=== PATIENT | female | born 1995 | race Caucasian/White ===

== ENCOUNTER 2016-08-13 09:44 | Emergency (ER) | payer OTHER ==
[2016-08-13 09:52] VITALS: BP 143/75
[2016-08-13] MEDS ORDERED: KETOROLAC TROMETHAMINE 60 MG/2 ML VIAL IM ONE (10:01)
[2016-08-13] MEDS ORDERED: DIAZEPAM 5 MG/ML DISP.SYRIN IM ONE (10:01)
--- NOTE | 2016-08-13 10:28 | ED Physician Documentation ---
Low Back Pain - HISTORIAN Historian: patient - HPI Stated Complaint: Low Back Pain Chief Complaint: Low Back Pain/ Injury Onset: hours Duration: continues in ED Recent Injury: No Context: turning Where: home Severity: moderate Further Comments: yes (21 year old female patient presents with low back pain, states she was playing video games and turned to get off the bed, reports "severe" back pain since that time. Denies numbness, loss of bowel or bladder. 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.) - ROS CONST: no problems CVS/RESP: none EYES/ENT: none MS/SKIN/LYMPH: none Neuro/Psych: none GI/: denies: abdominal pain, black stools - PAST HX Past History: denies: back injury, back pain Other History: other (anxiety) Surgeries/Procedures: other (ocular) Allergies/Adverse Reactions: Allergies Allergy/AdvReac Type Severity Reaction Status Date / Time iodine Allergy Severe Throat Verified 08/13/16 09:52 Swelling midazolam HCl [From Versed] Allergy Unknown Verified 08/13/16 09:52 Home Medications: Ambulatory Orders Medication Instructions Recorded Baclofen 10 mg PO TID PRN #30 tablet 08/13/16 Escitalopram Oxalate [Lexapro] 20 mg PO DAILY 08/13/16 Ketorolac Tromethamine [Toradol] 10 mg PO TID #15 tablet 08/13/16 Trazodone HCl [Trazodone HCl] 50 mg PO DAILY 08/13/16 Venlafaxine HCl [Effexor] 37.5 mg PO QD 08/13/16 - SOCIAL HX Smoking History: cigarettes - FAMILY HX Family History: denies: none - VITAL SIGNS Vital Signs: Vital Signs Temp Pulse Resp BP Pulse Ox 97.8 F 78 18 143/75 99 08/13/16 09:45 08/13/16 10:40 08/13/16 10:40 08/13/16 10:40 08/13/16 10:40 - REVIEWED ASSESSMENTS Nursing Assessment Reviewed: Yes Vitals Reviewed: Yes Progress - Progress Progress: Reviewed discharge instructions. Instructed to see PCP after 5 days of NSAIDs if pain continued for radiology tests. ED Results Lab/Radiology - Orders Orders: ED Orders Category Date Time Status Diazepam [Valium] Med 08/13/16 10:01 Discontinued 5 mg IM NOW ONE Ketorolac Tromethamine [Toradol] Med 08/13/16 10:01 Discontinued 60 mg IM NOW ONE Low Back Pain/Injury - Physical Exam General Appearance: mild distress EENT: eye inspection normal, ARMIDA Resp/CVS: chest non-tender, breath sounds nml, heart sounds nml, no resp. distress, lungs clear, reg. rate & rhythm Abdomen: non-tender, no organomegaly, no pulsatile mass Back: painless ROM, other (tenderness to palpation in the L-spine paraspinous muscles. ) Straight Leg Raising: No: Negative Left (patient refuses to lie down for straight leg tests due to pain) Neuro/Psych: oriented x3, motor nml, sensation nml, bilat. doriflexion nml, reflexes nml, mood/affect nml Skin: normal color, warm/dry, NR, INT, PAL, DR Extremities: non-tender, normal range of motion, no evidence of injury, no edema , J, SUPERMARKET MANAGER Discharge Clincal Impression: Low back strain Qualifiers: Encounter type: initial encounter Qualified Code(s): S39.012A - Strain of muscle, fascia and tendon of lower back, initial encounter Prescriptions: Baclofen 10 mg PO TID PRN #30 tablet PRN Reason: Spasms Ketorolac Tromethamine [Toradol] 10 mg PO TID #15 tablet Referrals: Deborah Hou PA [PHYSICIAN SALES PROJECT COORDINATOR] - 2 Days Additional Instructions: Ice Rest Elevation If you are unable to bear weight and continuing to have signficant pain on day 3 -4; see your PCP for re-evaluation and additional xrays. You may use Tylenol every 4hour as needed for pain. Limit your dose to less than 4 G per day. Alternate with Ibuprofen 600-800mg three times a day with food as needed. Do not take for more than 5 days in a row. Do not take ibuprofen, aleve, naproxen or any other NSAID while you are on toradol. You may want to try massage, biofreeze, blayne inman or aspercream or see a chiropractor to relieve your pain Home Medications: Ambulatory Orders Baclofen 10 mg PO TID PRN #30 tablet 08/13/16 Escitalopram Oxalate [Lexapro] 20 mg PO DAILY 08/13/16 Ketorolac Tromethamine [Toradol] 10 mg PO TID #15 tablet 08/13/16 Trazodone HCl [Trazodone HCl] 50 mg PO DAILY 08/13/16 Venlafaxine HCl [Effexor] 37.5 mg PO QD 08/13/16 Condition: Stable Disposition: 01 HOME, SELF-CARE Decision to Admit: NO Decision Time: 10:28
== END 2016-08-13 10:40 | disposition home or self-care (01) ==
LOC: ED 09:44 → SUPCPDRO 09:44 → ED 10:40
DX: S39.012A Strain of muscle, fascia and tendon of lower back, initial encounter (principal); X58.XXXA Exposure to other specified factors, initial encounter; Y93.9 Activity, unspecified; Y99.9 Unspecified external cause status
CPT/HCPCS: J1885; J3360; 96372; 99283

== ENCOUNTER 2017-02-24 22:29 | Emergency (ER) | payer OTHER ==
[2017-02-24 23:29] LABS: APPEARANCE,URINE CLEAR (CLEAR); COLOR,URINE YELLOW (YELLOW); OCCULT BLOOD,URINE NEGATIVE (NEGATIVE)
[2017-02-24 23:38] LABS: BASOPHILS % 0.7 (0.0-1.5); EOSINOPHILS % 3.6 % (0.0-6.8); MEAN CORPUSCULAR HEMOGLOBIN 27.3 pg (28.0-34.0); MEAN CORPUSCULAR VOLUME 83.5 fl (80.0-100.0); MONOCYTES % 4.8 % (0.0-11.0); NEUTROPHILS # 6.6 # k/uL (1.4-7.7)
[2017-02-24 23:47] LABS: eGFR (African) > 60; eGFR (Non-African) > 60
[2017-02-25] MEDS ORDERED: ONDANSETRON HCL/PF 4 MG/ 2ML VIAL ONE (00:10)
[2017-02-25] MEDS: ONDANSETRON HCL/PF 4 MG/ 2ML VIAL IVP ONE (00:15)
[2017-02-25 00:31] VITALS: BP 113/78
--- NOTE | 2017-02-25 00:34 | ED Physician Documentation ---
Abdominal Pain - HISTORIAN Historian: patient - HPI Stated Complaint: n/v Chief Complaint: Abdominal Pain Additonal Information: nausea emesis past two nights lasted until 0400 this l;ast ;noct. vomited again tonight - both nocts shortly after took meds. only new med is bcp for ovarian cysts-unsure re Onset: days ago (2) Timing: better Context: out of country travel Severity: moderate Quality: other (nausea emesis min abd pain) Associated Symptoms: nausea, vomiting Further Comments: yes (on sulpha for callulitis leg and arm) - ROS CONST: no problems GI/: none CVS/RESP: none EYES/ENT: none (blind lt eye) MS/SKIN/LYMPH: none NEURO/PSYCH: none - SOCIAL HX Smoking History: less than 1 pack/day Alcohol Use: none Drug Use: none - FAMILY HX Family History: none - PAST HX Past History: other (ovarian cysts depression) Surgeries/Procedures: other (seven on lt eye) Allergies/Adverse Reactions: Allergies Allergy/AdvReac Type Severity Reaction Status Date / Time iodine Allergy Severe Throat Verified 02/24/17 22:52 Swelling midazolam HCl [From Versed] Allergy Unknown Verified 02/24/17 22:52 - VITAL SIGNS Vital Signs: Vital Signs Temp Pulse Resp BP Pulse Ox 97.5 F L 80 20 119/52 99 02/24/17 22:47 02/24/17 22:47 02/24/17 22:47 02/24/17 22:47 02/24/17 22:47 - REVIEWED ASSESSMENTS Nursing Assessment Reviewed: Yes Vitals Reviewed: Yes ED Results Lab/Radiology - Orders Orders: ED Orders Category Date Time Status AMYLASE Routine Lab 02/24/17 Ordered AMYLASE Routine Lab 02/24/17 23:28 Completed CBC AUTO DIFF Routine Lab 02/24/17 23:28 Completed CBC/PLATELET/DIFF Routine Lab 02/24/17 Ordered CMP Routine Lab 02/24/17 Ordered CMP Routine Lab 02/24/17 23:28 Completed SERUM HCG Routine Lab 02/24/17 Ordered SERUM HCG Routine Lab 02/24/17 23:28 Completed UA W/MICRO IF INDICATED Routine Lab 02/24/17 23:28 Completed URINALYSIS Routine Lab 02/24/17 Ordered Abdominal Pain Physical Exam - Physical Exam General Appearance: mild distress RESPIRATORY: no resp distress, chest non-tender, breath sounds normal CVS: reg rate & rhythm, heart sounds normal ABDOMEN: soft, tenderness (slight) SKIN: warm/dry, normal color. No: cyanosis, diaphoresis, jaundice, mottled EXTREMITIES: non-tender, normal range of motion NEURO: oriented X3 Vital Signs: Vital Signs Temp Pulse Resp BP Pulse Ox 97.5 F L 80 20 119/52 99 02/24/17 22:47 02/24/17 22:47 02/24/17 22:47 02/24/17 22:47 02/24/17 22:47 Discharge Clincal Impression: nausea udo-possibly meds interaction Referrals: Loretta Barnett MD [Primary Care Provider] - 2 Days Condition: Good Disposition: 01 HOME, SELF-CARE Decision to Admit: NO Decision Time: 23:58
== END 2017-02-25 00:30 | disposition home or self-care (01) ==
LOC: ED 22:29
DX: R11.0 Nausea (principal)
CPT/HCPCS: 80053; 81002; 82150; 84703; 85025; J2405; 96372; 99283; S1016

== ENCOUNTER 2017-04-04 22:12 | Emergency (ER) | payer OTHER ==
[2017-04-04] MEDS ORDERED: LORATADINE 10 MG TABLET PO ONE (22:25)
[2017-04-04] MEDS ORDERED: methylPREDNISolone ACETATE 40 MG/ML VIAL IM ONE (22:25)
[2017-04-04] MEDS ORDERED: methylPREDNISolone ACETATE 80 MG/ML VIAL IM ONE (22:26)
--- NOTE | 2017-04-04 22:28 | ED Physician Documentation ---
Allergy Symptoms - HISTORIAN Historian: patient, friend - [facility] Chief Complaint: Allergic Reaction Additional Information: FACIAL SWELLING DUE TO UNKNOWN ALLERGIC REACTION ONSET APPROX 2200HRS ATE WENDYS CHEESE BERRIOS FRIES AND CHICKEN NUGGETS APPROX 2000HRS. HAS EATEN THIS BEFORE-NO OBVIOUS OTHER ALLERGEN.PT TOOK 75MG BENADRYL APPROX 1 HR AGO Duration: continues in ED Associated Symptoms: facial, other (SWELLING MILD PURITIC) Shortness of Breath: moderate Trouble Swallowing/ Speaking: none Identified Cause: no Context: Medication Exposure: other (NO NEW) Further Comments: yes (no resp distress or swallowing no tongue swelling) - ROS EYES/ENT: other (blind lt eye child camacho injury) CVS/RESP: none GI/: none CONST: none MS/SKIN/LYMPH: none NEURO/PSYCH: none - PAST HX Prior Allergic Reaction: other (iodine) Medical History: other (DEPRESSION LT EYE BLIND FEROM CHILDHOOD INJURY) Allergies/Adverse Reactions: Allergies Allergy/AdvReac Type Severity Reaction Status Date / Time iodine Allergy Severe Throat Verified 04/04/17 22:18 Swelling midazolam HCl [From Versed] Allergy Unknown Verified 04/04/17 22:18 Home Medications: Ambulatory Orders Medication Instructions Recorded Desogestrel-Ethinyl Estradiol 1 tab PO QDAY 04/04/17 [Enskyce 28 Tablet] diphenhydrAMINE HCL [Benadryl] 25 mg PO HS 04/04/17 - SOCIAL HX Smoking History: less than 1 pack/day Alcohol Use: none Drug Use: none - FAMILY HX Family History: No - VITAL SIGNS Vital Signs: Vital Signs Temp Pulse Resp BP Pulse Ox 113/78 02/25/17 00:30 - REVIEWED ASSESSMENTS Nursing Assessment Reviewed: Yes Vitals Reviewed: Yes ED Results Lab/Radiology - Orders Orders: ED Orders Category Date Time Status Famotidine [Pepcid] Med 04/04/17 22:24 Once 20 mg PO NOW ONE Loratadine [Claritin] Med 04/04/17 22:25 Once 10 mg PO NOW ONE methylPREDNISolone ACETATE [Depo-Medrol] Med 04/04/17 22:23 Ordered 80 mg IM NOW PRN Allergy Symptons Exam - EXAM General Appearance: mild distress HEENT: ENT nml inspection Skin: no rash (LKIPS CLARICE UPPER AND OTHER FACIAL SWELLING) Extremities: non-tender Neck: nml inspection Respiratory: no resp. distress, breath sounds nml CVS: reg rate & rhythm, heart sounds normal Abdomen: non-tender Neuro: oriented X3, CN's nml as tested, motor nml, sensation nml, mood/affect nml, cognition normal Discharge Clincal Impression: FACIAL SWELLING-ALL REACTION UDO Referrals: Loretta Barnett MD [Primary Care Provider] - 2 Days Comments: PT REQ STEROID. WILL ALSO GET RANITIDINE AND CLARITIN-PERHAPS HOLD BENADRYL Condition: Good Disposition: 01 HOME, SELF-CARE Decision to Admit: NO Decision Time: 22:34
[2017-04-04] MEDS: methylPREDNISolone ACETATE 80 MG/ML VIAL IM PRN (22:30)
[2017-04-04] MEDS: FAMOTIDINE 20 MG TABLET PO ONE (22:40)
[2017-04-04] MEDS: LORATADINE 10 MG TABLET PO ONE (22:40)
[2017-04-04] MEDS: methylPREDNISolone SOD SUCC 40 MG/ML VIAL IM ONE (22:49)
[2017-04-04 22:57] VITALS: BP 138/76
== END 2017-04-04 22:55 | disposition home or self-care (01) ==
LOC: ED 22:12
DX: T78.3XXA Angioneurotic edema, initial encounter (principal); X58.XXXA Exposure to other specified factors, initial encounter; Y93.9 Activity, unspecified; Y99.9 Unspecified external cause status
CPT/HCPCS: J1030; J1040; J2920; 96372; 99283

== ENCOUNTER 2017-06-29 22:37 | Emergency (ER) | payer OTHER ==
--- NOTE | 2017-06-29 22:51 | ED Physician Documentation ---
General Adult - HISTORIAN Historian: patient, spouse - HPI Stated Complaint: lower abdominal pain nausea (last ) Chief Complaint: Flank Pain Onset: days ago (5) Timing: still present, pain intermittent Severity: mild Further Comments: yes (per pt she started with vomiting x 1 last and she has had headache and chills no fever. Denies any blood in her urine . Pain is left lower quadrant at then at times it moves to her side . Denies any urinary issues. Denies any vaginal symptoms) - ROS CONST: chills. denies: fever, recent illness CVS/RESP: denies: shortness of breath, cough GI/: vomiting (x 1 ), diarrhea (x 1 today ). denies: nausea MS/SKIN/LYMPH: none NEURO/PSYCH: headache - PAST HX Past History: none Other History: none Surgeries/Procedures: none Immunizations: referred to PCP Allergies/Adverse Reactions: Allergies Allergy/AdvReac Type Severity Reaction Status Date / Time iodine Allergy Severe Throat Verified 06/29/17 23:02 Swelling midazolam HCl [From Versed] Allergy Unknown Verified 06/29/17 23:02 - SOCIAL HX Smoking History: cigarettes - FAMILY HX Family History: No - VITAL SIGNS Vital Signs: Vital Signs Temp Pulse Resp BP Pulse Ox 138/76 04/04/17 22:55 - REVIEWED ASSESSMENTS Nursing Assessment Reviewed: Yes Vitals Reviewed: Yes Progress - Progress Progress: 2345: pt resting in bed on her phone with spouse at bedside. DG ED Results Lab/Radiology - Radiology Radiology Impressions: Computed tomography of the abdomen and pelvis without contrast History: 3 days of left lower abdominal pain Findings: Transverse abdomen and pelvis sections are obtained without contrast. The gallbladder is markedly contracted. A calcified liver granuloma is present. The kidneys, adrenals, spleen, lung bases, pancreas, great vessels, and mesenteric structures are unremarkable. Obesity is observed. Bowel loops exhibit normal caliber and wall thickness. Osseous structures are intact. The appendix is normal. Pelvic sections reveal unremarkable bowel loops, decompressed urinary bladder, and normal-sized uterus and ovaries. No acute pelvic abnormality is observed. Osseous structures are intact. Impression: Obesity and gallbladder contraction. Otherwise normal exam. Electronically signed on Jun 30, 2017 12:11:33 AM BLOCK SETTER GYPSUM by: Raza Gomez General Adult Physical Exam - PHYSICAL EXAM GENERAL APPEARANCE: no distress EENT: eye inspection normal RESPIRATORY: no resp distress, chest non-tender, breath sounds normal CVS: reg rate & rhythm, heart sounds normal, equal pulses, no murmur ABDOMEN: soft, normal bowel sounds, no distension, non-tender, guarding (lower abdomen) BACK: normal inspection SKIN: warm/dry, normal color EXTREMITIES: non-tender, normal range of motion NEURO: oriented X3, CN's nml as tested, motor nml, sensation nml, mood/affect nml Discharge Clincal Impression: Nausea & vomiting Qualifiers: Vomiting type: unspecified Vomiting Intractability: intractable Qualified Code( s): R11.2 - Nausea with vomiting, unspecified Abdominal pain Qualifiers: Abdominal location: left lower quadrant Qualified Code(s): R10.32 - Left lower quadrant pain Referrals: Loretta Barnett MD [Primary Care Provider] - 2 Days Comments: Push fluids rest Tylenol or Ibuprofen for pain Watch for blood in urine or continued symptoms or fever Return to ER for any concerning symptoms Follow up with PCP in 2-4 days Condition: Stable Disposition: 01 HOME, SELF-CARE Decision to Admit: NO Date of Decison to Admit: 06/30/17 Decision Time: 00:15
[2017-06-29 23:41] LABS: BASOPHILS % 0.4 (0.0-1.5); EOSINOPHILS % 2.5 % (0.0-6.8); MEAN CORPUSCULAR HEMOGLOBIN 28.6 pg (28.0-34.0); MEAN CORPUSCULAR VOLUME 86.5 fl (80.0-100.0); MONOCYTES % 6.9 % (0.0-11.0); NEUTROPHILS # 6.4 # k/uL (1.4-7.7)
[2017-06-29 23:51] LABS: eGFR (African) > 60; eGFR (Non-African) > 60
[2017-06-30 00:25] VITALS: BP 117/67
--- NOTE | 2017-06-30 06:09 | Diagnostic Imaging Report ---
ERNESTO HENRIQUEZ [facility] [address] [facility] [address] [place], [place]. [address] Report Submission Date: Jun 30, 2017 12:11:33 AM DIRECTOR CAREER SERVICES Patient Study Name: BERT ALMODOVAR Date: Jun 29, 2017 11:41:39 PM DIRECTOR CAREER SERVICES Modality Type: CT\SR Gender: F Description: CT ABD & PELVIS W/O CO : 95 Institution: [facility] Physician: ERNESTO HENRIQUEZ Computed tomography of the abdomen and pelvis without contrast History: 3 days of left lower abdominal pain Findings: Transverse abdomen and pelvis sections are obtained without contrast. The gallbladder is markedly contracted. A calcified liver granuloma is present. The kidneys, adrenals, spleen, lung bases, pancreas, great vessels, and mesenteric structures are unremarkable. Obesity is observed. Bowel loops exhibit normal caliber and wall thickness. Osseous structures are intact. The appendix is normal. Pelvic sections reveal unremarkable bowel loops, decompressed urinary bladder, and normal-sized uterus and ovaries. No acute pelvic abnormality is observed. Osseous structures are intact. Impression: Obesity and gallbladder contraction. Otherwise normal exam. Electronically signed on Jun 30, 2017 12:11:33 AM DIRECTOR CAREER SERVICES by: Raza MONTANEZ
[2017-06-30 06:15] LABS: APPEARANCE,URINE CLEAR (CLEAR); COLOR,URINE YELLOW (YELLOW); OCCULT BLOOD,URINE TRACE-INTACT (NEGATIVE); PH URINE 6.5 (5.0 - 8.0); URINE HCG NEGATIVE (NEGATIVE); UROBILINOGEN URINE 0.2 Eu (0.2-1.0)
== END 2017-06-30 00:19 | disposition home or self-care (01) ==
LOC: ED 22:37
DX: R10.32 Left lower quadrant pain (principal); R11.2 Nausea with vomiting, unspecified
CPT/HCPCS: 74176; 80053; 81002; 81025; 85025; 99283; S1016

== ENCOUNTER 2018-01-06 15:59 | Outpatient (CLI) | payer OTHER | END 2018-01-06 16:05 | LOC: LABRHC 15:59 | PROVIDERS: ATTEND Family Medicine | DX: R10.2 Pelvic and perineal pain (principal) | CPT/HCPCS: 87491; 87591 ==

== ENCOUNTER 2018-03-13 21:38 | Emergency (ER) | payer OTHER ==
[2018-03-13] MEDS ORDERED: methylPREDNISolone SOD SUCC 125 MG/2 ML VIAL IVP ONE (22:00)
[2018-03-13] MEDS ORDERED: IPRATROPIUM/ALBUTEROL SULFATE 3 ML AMPUL.NEB NEB ONE (22:00)
--- NOTE | 2018-03-13 22:32 | ED Physician Documentation ---
Upper Respiratory Symptoms - HISTORIAN Historian: patient - HPI Stated Complaint: "I HAVE BEEN HAVING TROUBLE BREATHING /FEVER SINCE LAST WEEK" Chief Complaint: Cough/ Upper Respiratory Additional Information: Patient presents to ED with a 7 day history of cough with clear sputum production and a one day history of fever 103.0. Patient is a smoker and has been unable to smoke due to cough. She states her chest hurts when she coughs. She also reports some blood streaked sputum on occasion. Onset: days ago (7) Duration: intermittent episodes Severity: moderate Associated Symptoms: fever, runny nose, bloody cough, productive cough. denies: sore throat Worsened by Deep Breath: Yes - ROS CONST/EYES: denies: weakness CVS/RESP: chest pain, shortness of breath LYMPH: denies: swollen glands GI/: denies: abdominal pain NEURO/PSYCH: denies: dizziness MS/SKIN: denies: joint pain - PAST HX Lung Disease: none PE Risk Factors: none Surgeries/Procedures: none Allergies/Adverse Reactions: Allergies Allergy/AdvReac Type Severity Reaction Status Date / Time iodine Allergy Severe Throat Verified 03/13/18 22:02 Swelling midazolam HCl [From Versed] Allergy Unknown Verified 03/13/18 22:02 Home Medications: Ambulatory Orders Medication Instructions Recorded Levofloxacin [Levaquin] 750 mg PO DAILY #5 tablet 03/13/18 Prednisone 10 mg PO DIRECTED #1 tab.ds.pk 03/13/18 - SOCIAL HX Smoking History: cigarettes, greater than 1 pack/day Alcohol Use: none Drug Use: marijuana - FAMILY HX Family History: none - VITAL SIGNS Vital Signs: Vital Signs Temp Pulse Resp BP Pulse Ox 96.9 F L 96 H 16 123/62 95 03/13/18 21:45 03/13/18 21:45 03/13/18 21:45 03/13/18 21:45 03/13/18 21:45 - REVIEWED ASSESSMENTS Nursing Assessment Reviewed: Yes Vitals Reviewed: Yes Progress - Progress Progress: 2258 Patient breathing easier after breathing treatment. ED Results Lab/Radiology - Lab Results Lab Results: Lab Results 03/13/18 22:26 Sodium 134 mmol/L L mmol/L (136-145) Potassium 3.6 mmol/L mmol/L (3.5-5.1) Chloride 114 mmol/L H mmol/L (98-107) Carbon Dioxide 23 mmol/L mmol/L (22-30) BUN 7 mg/dL mg/dL (7-17) Creatinine 0.60 mg/dL mg/dL (0.52-1.04) Estimated Creat Clear 291 Est GFR ( Amer) > 60 (60 - ) Est GFR (Non-Af Amer) > 60 (60 - ) Glucose 80 mg/dL mg/dL (74-106) Calcium 8.6 mg/dL mg/dL (8.4-10.2) PA and lateral chest Clinical history: Cough and weakness for 1 week. Findings: Examination of the chest in PA and lateral views with no prior films for comparison demonstrates the lungs to be clear. The cardiovascular and mediastinal silhouettes are within normal limits. The bony thorax is intact. Impression: 1. Negative chest. Electronically signed on Mar 13, 2018 11:09:25 PM CDT by: Bg Stratton - Orders Orders: ED Orders Category Date Time Status Place IV Lock 1T Care 03/13/18 21:58 Active CHEST 2VIEW [RAD] Stat Exams 03/13/18 Taken BMP [BMP] Stat Lab 03/13/18 22:26 Completed URINE HCG [URINE HCG] Stat Lab 03/13/18 Uncollected 0.9 % Sodium Chloride [Sodium Chloride] 100 ml Med 03/13/18 22:59 Discontinued IV .STK-MED Ipratropium/Albuterol Sulfate [Duoneb] Med 03/13/18 22:00 Discontinued 3 ml NEB NOW ONE cefTRIAXone SODIUM [Rocephin] Med 03/13/18 22:59 Discontinued 1 gm .ROUTE .STK-MED ONE cefTRIAXone SODIUM [Rocephin] 1 gm Med 03/13/18 22:36 Discontinued 0.9 % Sodium Chloride [Sodium Chloride] 100 ml IV NOW methylPREDNISolone SOD SUCC [Solu-MEDROL] Med 03/13/18 22:00 Discontinued 125 mg IVP NOW ONE Upper Respiratory Symptoms - EXAM General Appearance: no acute distress, alert EENT: eyes nml inspection Neck: supple Respiratory: other (scattered inspiratory/expiratory wheezes bilaterally). No: accessory muscle use Abdomen: non-tender, nml bowel sounds CVS: reg rate & rhythm, heart sounds normal Skin: color nml, no rash Extremities: non-tender, no edema Neuro/Psych: oriented x3, neuro intact Discharge Clincal Impression: Upper respiratory infection, acute Prescriptions: Levofloxacin [Levaquin] 750 mg PO DAILY #5 tablet Prednisone 10 mg PO DIRECTED #1 tab.ds.pk Referrals: Loretta Barnett MD [Primary Care Provider] - 2 Days Condition: Stable Disposition: 01 HOME, SELF-CARE Decision to Admit: NO Date of Decison to Admit: 03/13/18 Decision Time: 23:14
[2018-03-13] MEDS ORDERED: cefTRIAXone SODIUM 1 GM in 0.9 % SODIUM CHLORIDE 100 ML IV ONE (22:36)
[2018-03-13 22:45] LABS: eGFR (Non-African) > 60
[2018-03-13] MEDS ORDERED: cefTRIAXone SODIUM 1 GM VIAL ONE (22:59)
[2018-03-13] MEDS ORDERED: 0.9 % SODIUM CHLORIDE 100 ML IV ONE (22:59)
[2018-03-13] MEDS ORDERED: ACETAMINOPHEN 500 MG TABLET PO ONE (23:30)
--- NOTE | 2018-03-14 | Diagnostic Imaging Report ---
BERT WHITTINGTON [facility] [address] [facility] [address] [place] [address]. [id number] Report Submission Date: Mar 13, 2018 11:09:25 PM CDT Patient Study Name: BERT RIVAS Date: Mar 13, 2018 10:50:06 PM CDT Modality Type: DX Gender: F Description: CHEST : 95 Institution: [facility] Physician: BERT WHITTINGTON PA and lateral chest Clinical history: Cough and weakness for 1 week. Findings: Examination of the chest in PA and lateral views with no prior films for comparison demonstrates the lungs to be clear. The cardiovascular and mediastinal silhouettes are within normal limits. The bony thorax is intact. Impression: 1. Negative chest. Electronically signed on Mar 13, 2018 11:09:25 PM CDT by: Bg MONTANEZ
[2018-03-14 00:06] VITALS: BP 92/50
== END 2018-03-14 00:05 | disposition home or self-care (01) ==
LOC: ED 21:38
DX: J06.9 Acute upper respiratory infection, unspecified (principal)
CPT/HCPCS: 71046; 80048; 81025; J2930; 94640; 96374; S1016

== ENCOUNTER 2018-09-22 15:30 | Outpatient (CLI) | payer BC | END 2018-09-22 15:33 | LOC: LABRHC 15:30 | PROVIDERS: ATTEND Family Medicine | DX: J02.9 Acute pharyngitis, unspecified (principal) | CPT/HCPCS: 87070 ==

== ENCOUNTER 2018-11-24 21:11 | Emergency (ER) | payer BC ==
[2018-11-24] MEDS ORDERED: KETOROLAC TROMETHAMINE 60 MG/2 ML VIAL IM ONE (21:22)
--- NOTE | 2019-01-05 08:52 | Diagnostic Imaging Report ---
BRO العلي [facility] [address] [facility].[address] [address] Report Submission Date: Nov 24, 2018 10:01:08 PM CDT Patient Study Name: BERT RIVAS Date: Nov 24, 2018 9:32:47 PM CDT Modality Type: DX Gender: F Description: HAND 3 VIEWS OR MORE : 95 Institution: [facility] Physician: BRO العلي 3 views right hand Clinical history: Right hand pain Findings: There is a fracture base of the 5th metacarpal without displacement. No other fractures identified. Electronically signed on Nov 24, 2018 10:01:08 PM CDT by: Balwinder MONTANEZ
== END 2018-11-24 22:24 ==
LOC: ED 21:15
DX: S52.601A Unspecified fracture of lower end of right ulna, initial encounter for closed fracture (principal); S62.306A Unspecified fracture of fifth metacarpal bone, right hand, initial encounter for closed fracture; W22.8XXA Striking against or struck by other objects, initial encounter; Y92.9 Unspecified place or not applicable
CPT/HCPCS: 29125; 73130; 96372; 99283; J1885

== ENCOUNTER 2019-02-26 10:57 | Emergency (ER) | payer BC, OTHER ==
[2019-02-26 11:34] VITALS: BP 126/66
--- NOTE | 2019-02-26 11:48 | ED Physician Documentation ---
General Adult - HISTORIAN Historian: patient - HPI Stated Complaint: Sore throat Chief Complaint: General Adult Onset: hours Timing: still present Severity: moderate Further Comments: yes (Pt is a 23 yo female with a sore throat. Boyfriend also has sore throat. No fever, cough.) - ROS CONST: other EYES/ENT: sore throat GI/: none MS/SKIN/LYMPH: none - PAST HX Past History: other (anxiety/depression, chronic pain, L eye surgery) Allergies/Adverse Reactions: Allergies Allergy/AdvReac Type Severity Reaction Status Date / Time iodine Allergy Severe Throat Verified 02/26/19 11:28 Swelling midazolam HCl [From Versed] Allergy Unknown Verified 02/26/19 11:28 Home Medications: Ambulatory Orders Medication Instructions Recorded Amoxicillin/Potassium Clav 1 each PO Q12H #20 tablet 02/26/19 [Augmentin 875-125 Tablet] - SOCIAL HX Smoking History: cigarettes - FAMILY HX Family History: No - VITAL SIGNS Vital Signs: Vital Signs Temp Pulse Resp BP Pulse Ox 98.7 F 85 16 126/66 99 02/26/19 11:24 02/26/19 11:24 02/26/19 11:24 02/26/19 11:24 02/26/19 11:24 - REVIEWED ASSESSMENTS Nursing Assessment Reviewed: Yes Vitals Reviewed: Yes Progress - Progress Progress: Rx Augmentin (875/125). Take one tablet by mouth every 12 hours for 10 days. General Adult Physical Exam - PHYSICAL EXAM GENERAL APPEARANCE: mild distress EENT: TM's nml, pharyngeal erythema NECK: normal inspection, supple RESPIRATORY: no resp distress, chest non-tender, breath sounds normal CVS: reg rate & rhythm, heart sounds normal BACK: normal inspection, no CVA tenderness SKIN: warm/dry, normal color EXTREMITIES: non-tender, normal range of motion, no evidence of injury NEURO: oriented X3, motor nml, sensation nml Discharge Clincal Impression: Pharyngitis Qualifiers: Pharyngitis/tonsillitis etiology: unspecified etiology Qualified Code(s): J02.9 - Acute pharyngitis, unspecified Prescriptions: Amoxicillin/Potassium Clav [Augmentin 875-125 Tablet] 1 each PO Q12H #20 tablet Referrals: Primary Doctor,No [Primary Care Provider] - Condition: Good Disposition: 01 HOME, SELF-CARE Decision to Admit: NO Decision Time: 11:50
== END 2019-02-26 12:03 | disposition home or self-care (01) ==
LOC: ED 10:57
DX: J02.9 Acute pharyngitis, unspecified (principal)
CPT/HCPCS: 87070; 87880; 99283; 99284

== ENCOUNTER 2019-06-04 19:11 | Emergency (ER) | payer BC ==
--- NOTE | 2019-06-04 19:27 | ED Physician Documentation ---
Abdominal Pain - HISTORIAN Historian: patient - HPI Stated Complaint: LUQ abdominal pain, diarrhea Chief Complaint: Abdominal Pain Additonal Information: Patient presents to ED with a 1 hour history of LUQ abdominal pain. She reports diarrhea this morning. Patient is 17 weeks gestation. She denies vaginal discharge or spotting. Onset: hours (1) Duration: waxing, waning Timing: still present Context: denies: out of country travel Severity: mild Quality: aching, dull Associated Symptoms: diarrhea Exacerbated by: deep breaths Relieved by: supine - ROS CONST: no problems GI/: none CVS/RESP: denies: shortness of breath EYES/ENT: none MS/SKIN/LYMPH: none NEURO/PSYCH: none - SOCIAL HX Smoking History: cigarettes Alcohol Use: none Drug Use: none - FAMILY HX Family History: none - PAST HX Past History: none Ischemic Bowel Risk Factors: none Other History: none Surgeries/Procedures: none Allergies/Adverse Reactions: Allergies Allergy/AdvReac Type Severity Reaction Status Date / Time iodine Allergy Severe Throat Verified 06/04/19 19:43 Swelling midazolam HCl [From Versed] Allergy Unknown Verified 06/04/19 19:43 - VITAL SIGNS Vital Signs: Vital Signs Temp Pulse Resp BP Pulse Ox 97.6 F 76 12 119/43 98 06/04/19 19:15 06/04/19 19:15 06/04/19 19:15 06/04/19 19:15 06/04/19 19:15 - REVIEWED ASSESSMENTS Nursing Assessment Reviewed: Yes Vitals Reviewed: Yes Progress - Progress Progress: 1929 Portable doppler unit unable to get heart tones or femoral pulse of mother. Apparently it is broken. 1944 [facility] Will sign out AMA ED Results Lab/Radiology - Lab Results Lab Results: ua - negative for infection. Glucose neg, bilirubin neg, ketone neg, sp gravity 1.030, blood neg, protein neg, nitrite neg, leukocyte neg. - Orders Orders: ED Orders Category Date Time Status Heart Tones 1T Care 06/04/19 19:[address] IV Lock 1T Care 06/04/19 19:45 Ordered CBC/PLATELET/DIFF Routine Lab 06/04/19 Ordered CMP [CMP] Routine Lab 06/04/19 Ordered UA W/MICRO IF INDICATED Routine Lab 06/04/19 19:17 Ordered Acetaminophen [Tylenol] Med 06/04/19 19:45 Once 650 mg PO NOW ONE NORMAL SALINE @ 1000 MLS/HR ( 1000ml BOLUS) Med 06/04/19 19:45 Ordered 0.9 % Sodium Chloride [Normal Saline] 1,000 ml IV Q1H Abdominal Pain Physical Exam - Physical Exam General Appearance: no acute distress, alert EENT: ARMIDA NECK: supple RESPIRATORY: no resp distress, chest non-tender CVS: reg rate & rhythm ABDOMEN: soft, normal bowel sounds BACK: normal inspection, no CVA tenderness SKIN: warm/dry, normal color EXTREMITIES: non-tender NEURO: oriented X3, mood/affect nml Vital Signs: Vital Signs Temp Pulse Resp BP Pulse Ox 97.6 F 76 12 119/43 98 06/04/19 19:15 06/04/19 19:15 06/04/19 19:15 06/04/19 19:15 06/04/19 19:15 Discharge Clincal Impression: Abdominal pain Qualifiers: Abdominal location: left upper quadrant Qualified Code(s): R10.12 - Left upper quadrant pain Referrals: Castillo Alarcon MD [Primary Care Provider] - 2 Days Condition: Stable Disposition: 07 AGAINST MEDICAL ADVICE Decision to Admit: NO Date of Decison to Admit: 06/04/19 Decision Time: 19:50
[2019-06-04 19:45] VITALS: BP 119/43
[2019-06-04] MEDS ORDERED: 0.9 % SODIUM CHLORIDE 1,000 ML IV ONE (19:45)
[2019-06-04] MEDS ORDERED: ACETAMINOPHEN 325 MG TABLET PO ONE (19:45)
[2019-06-04 22:43] LABS: APPEARANCE,URINE CLEAR (CLEAR); COLOR,URINE YELLOW (YELLOW); OCCULT BLOOD,URINE NEGATIVE (NEGATIVE); UROBILINOGEN URINE 0.2 Eu (0.2-1.0)
== END 2019-06-04 19:55 | disposition left against medical advice (07) ==
LOC: ED 19:11
DX: O26.892 Other specified pregnancy related conditions, second trimester (principal); R10.12 Left upper quadrant pain; O99.612 Diseases of the digestive system complicating pregnancy, second trimester; R19.7 Diarrhea, unspecified; Z3A.17 17 weeks gestation of pregnancy
CPT/HCPCS: 81002; 96360; 99282; 99283